=== PATIENT | male | born 1950 | race Caucasian/White ===

== ENCOUNTER 2022-11-07 13:24 | Emergency (ER) | payer MEDICARE, SELFPAY ==
[2022-11-07 13:35] VITALS: BP 96/80; PULSE 69; RESP 18; TEMP 36.6; O2SAT 98
--- NOTE | 2022-11-07 13:42 | ED.URI ---
HPI - URI/Sore Throat General Chief Complaint: Upper Respiratory Infection Stated Complaint: Congestion,Cough Time Seen by Provider: 11/07/22 13:43 Source: patient and family Mode of arrival: ambulatory Limitations: no limitations History of Present Illness HPI Narrative: 72-year-old male presents with with complaint of fatigue, sinus pressure/congestion, headaches, drainage for 4 days. thinks that patient had a fever this morning. States she did not check with a thermometer but that he felt warm. Patient denies cough, chest congestion, shortness of breath. Denies nausea vomiting diarrhea. Is taking DayQuil NyQuil with no relief of sinus pressure. Thinks that he has a sinus infection. would like patient's urine checked because last time he was this tired he had a urinary tract infection. Patient has no urinary symptoms. All systems reviewed and negative except as noted above. Related Data Allergies Allergy/AdvReac Type Severity Reaction Status Date / Time No Known Allergies Allergy Verified 11/07/22 13:43 Review of Systems Review of Systems: CONSTITUTIONAL: Denies fever, chills, or sweats. reports fatigue. EYES: Denies visual changes, redness, or discharge. ENT: Reports rhinorrhea, congestion, postnasal drainage, sinus pressure and pain. Denies sore throat, or otalgia. CARDIOVASCULAR: Denies chest pain, palpitations, or edema. RESPIRATORY: Denies cough or dyspnea. GASTROINTESTINAL: Denies abdominal pain, nausea, vomiting, or diarrhea. GENITOURINARY: Denies dysuria or hematuria. SKIN: Denies rash or itching. MUSCULOSKELETAL: Denies back pain, joint pain, or myalgia. NEUROLOGIC: Denies headache, numbness, or weakness. PSYCHIATRIC: Denies anxiety or depression. All other systems reviewed are negative, except as documented in HPI. PMFSH Comments At time of signature, agree with nursing past medical, surgical, social and family history. There is no relevant family history pertinent to the presenting complaint. Exam Narrative: GENERAL: This is a well-nourished, well-developed patient, in no apparent distress. HEAD: normocephalic, atraumatic. EYES: PERRL. Sclera clear/white. Vision is grossly intact. EARS: External ears normal, auditory canals clear and without drainage, Fluid bilateral TMs without erythema or perforation. NOSE: External nose normal with purulent nasal drainage with erythema and swelling to both nares. bilateral maxillary sinus tenderness. THROAT: Mucous membranes moist, erythema to posterior pharynx with clear postnasal drainage. NECK: Neck supple, non-tender without lymphadenopathy, masses or thyromegaly. CARDIOVASCULAR: Regular rate and rhythm without murmurs, gallops, or rubs. RESPIRATORY: Clear to auscultation. Breath sounds equal bilaterally. No wheezes, rales, or rhonchi. SKIN: warm, Dry, intact with no suspicious lesions or rash, good texture and turgor. NEURO: awake, alert, and oriented to person, place and time. There were no obvious focal neurologic abnormalities. EXTREMITIES: No joint tenderness, effusion, or edema noted. Course Course Level of Care: Express Care Visit Vital Signs Vital signs: reviewed MDM - URI/Sore Throat MDM Narrative Medical decision making narrative: Patient is aware of diagnosis, understands and agrees to treatment plan. Anticipatory guidance given. Patient agrees to follow-up as directed and is aware of reasons to seek care at the emergency department. Portions of this record may have been created with voice recognition software negative urinalysis. Negative influenza test. Will prescribe antibiotic today due to his history of frequent Bacterial sinus infections. Differential Diagnosis Differential diagnosis: Likely upper respiratory infection, sinusitis, viral infection and influenza Discharge Plan Discharge Clinical Impression: Acute sinusitis Patient Disposition: Home, Self-Care Condition: Stable Instructions:
--- NOTE | 2022-11-07 17:25 | PC.NURSE ---
1400 UPON DC, REPORTS THE LAST TIME PT WAS LETHARGIC LIKE THIS HE HAD A UTI, URINE TO BE OBTAINED AND TESTED.
== END 2022-11-07 14:20 | disposition home or self-care (01) ==
PROVIDERS: Emergency Provider Nurse Practitioner Family
DX: J01.90 Acute sinusitis, unspecified (principal); E78.00 Pure hypercholesterolemia, unspecified; I10 Essential (primary) hypertension; E11.9 Type 2 diabetes mellitus without complications
CPT/HCPCS: 81003; 87804; 99213; G0463

== ENCOUNTER 2025-05-20 15:30 | Outpatient (RCR) | payer MEDICARE, SELFPAY ==
--- NOTE | 2025-03-21 15:25 | OPREHPOC ---
Outpatient Therapy Plan of Care This is a Multidisciplinary Plan of Care that may contain components documented by all disciplines (PT, OT, and ST.) ST Problem 1 ST Problem #[address] Goal 1 Goal / Goal Update The patient will participate in home programming to improve carry over/generalization of skills to the home environment. Target Visit [address] Problem #[address] Goal 1 Goal / Goal Update Cognition: 1. The patient will recall short paragraph length information 2-3 details with 805 accuracy and minimal cues. 2. The patient will recall 2-3 items after a 5-7 minute delay with 80% accuracy and minimal cues. 3. The patient will attend t a structured task for 10 minutes without redirect. 4. The patient will complete abstract reasoning tasks for home scenarios with 805 accuracy and minimal cues. Target Visit 10
--- NOTE | 2025-03-21 15:26 | STOPEVAL1 ---
Assessment and note entered by Ariana Flores [employer]OUND[employer]ISHING SUPERVISOR Evaluation Information Assessment Status Evaluation Assessment Status Evaluation Reported Pain Level Pain Score 0: Self Report Pain Score 0: Self Report Assessment ST Clinical Summary The patient is a 75 year old male referred for speech therapy services following his discharge from the [facility]. 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 The patient is accompanied by his who he lives with they report their greatest concern is memory and concentration. The patient was administered the RIPA(Ross Information Processing Assessment) and portions of the [facility] Cognitive Evaluation. Results were as follows for the RIPA subtests given: Immediate Memory (29)96%, Temporal Orientation (21) 76%, Spatial Orientation (30) 100%, Problem Solving and Abstract Reasoning (29) 96%, Organization (23) 76%, Auditory Processing and Retention (30) 100%. Results for the [facility] Cognitive Evaluation subtests are as follows: Complex Problem Solving 100% Thought Organization 100%, Functional Math 100% Reading 100%. Results indicated Mild cognitive deficits characterized by mildly decreased memory( short-term and delayed), mildly decreased sustained attention/concentration, mild deficits for abstract reasoning. Recommend outpatient therapy services 1x week for 10 visits to address cognition. Discussed with patient and spouse they are agreeable with treatment at this time. Plan of Care ST Services Indicated Yes These treatments will address the objective and functional deficits as defined above. The patient will be advanced safely and appropriately in order for the patient to progress towards his/her prior level of function. Additional exercises will be introduced and as well as a comprehensive home exercise program upon discharge, if needed, ?to ensure carryover of functional gains achieved in the clinic. This treatment plan has been reviewed and agreement upon by the patient.
--- NOTE | 2025-03-21 15:51 | OTOPEVDC ---
Assessment and note entered by Haley Delgadillo, OT Thank you for referring Ramone Montenegro to [facility].? An evaluation has been completed. No further treatment is needed. Evaluation Information Assessment Status Evaluation Assessment Status Evaluation ICD-10 Condition Codes (OT) Generalized muscle weakness M62.81 Onset 02/18/25 Subjective Information Pt. and spouse present. Spouse recalling for pt. as pt. appears to have memory deficit. Spouse reports taking pt. to hospital as he was believing himself to be having a stroke due to experiencing BLE weakness, paresthesia, and loss of function. Pt. found to have aortic stenosis and subclavian steal syndrome., with no acute neurological findings, negative for stroke, possibility for TIA. Pt. discharged from hospital and went to inpatient rehabilitation for a week. Pt. reports having returning home from rehab he reports having no additional difficulties in his typical daily tasks, spouse reports he is stronger than prior to going to rehab. Spouse reports pt. also has history of diagnosis of apathy. Pt. reports he is happy and relaxed, since retiring from a constantly busy job at [employer]. Reported Pain Level Pain Score 0: Self Report Pain Score 0: Self Report Assessment OT Clinical Summary Pt. is 75 year old M referred to OP therapy discharge to inpatient rehabilitation from hospitalization for LE weakness, with paresthesia, and changes in mental status with history of diagnosed apathy. Pt. displays UE ROM WNL, and though displaying below average strength and dexterity, WFL, pt. reports this does not limit his independence in daily activities, although family is concerned with his limited interest and engagement in prior interests and overall sedentary lifestyle. Pt. encouraged and educated to find purposeful activities and engage with peers and family due to long-term benefits to health and overall wellbeing. Pt. will be seen by OP PT for evaluation as pt. has experienced multiple falls. Discharging from OT on this date Plan of Care OT Services Indicated No
--- NOTE | 2025-03-24 16:39 | OPREHPOC ---
Outpatient Therapy Plan of Care This is a Multidisciplinary Plan of Care that may contain components documented by all disciplines (PT, OT, and ST.) PT Problem 1 PT Problem #1 Knowledge Deficit PT Goal 1 Goal / Goal Update Pt. will demo good understanding of diagnosis and prognosis, HEPs. Target Visit 8 PT Problem 2 PT Problem #2 Impaired Functional Mobility PT Goal 1 Goal / Goal Update Pt will perform Single Leg Standing x 3-5 seconds each LE with improved stability Pt will perform 5xSTS < 20 seconds with improved stability and no discomfort Target Visit 16 PT Problem 3 PT Problem #3 Impaired Strength PT Goal 1 Goal / Goal Update Pt will demo 4/5 strength to B hip abductors, ERs, ankle PF and DF Target Visit 14 PT Problem 4 PT Problem #4 Impaired Gait PT Goal 1 Goal / Goal Update Pt will demo normalized gait pattern, with equal stride length and equal weight shifting bilaterally on various surfaces of smooth, uneven and stairs with appropriate AD prn Target Visit 12 PT Problem 5 PT Problem #5 Impaired Balance PT Goal 1 Goal / Goal Update Pt will demo a Tinetti Assessment score of 21/28 indicating improved balance and ambulation and reduced risk for falls. ST Problem 1 ST Problem #[address] Goal 1 Goal / Goal Update The patient will participate in home programming to improve carry over/generalization of skills to the home environment. Target Visit [address] Problem #[address] Goal 1 Goal / Goal Update Cognition: 1. The patient will recall short paragraph length information 2-3 details with 80% accuracy and minimal cues. 2. The patietn will recall 2-3 items after a 5-7 minute delay with 80% accuracy and minimal cues. 3. The patient will attend to a structured task for 10 minutes without redirect. 4. The patietn will complete abstract reasoning tasks for home scenarios with 80% accuracy and minimal cues. Target Visit 10
--- NOTE | 2025-03-24 16:39 | PTOPEVAL1 ---
Assessment and note entered by Federica Ma, PT Evaluation Information Assessment Status Evaluation ICD-10 Condition Codes (PT) Pain in low back M54.50,Pain in left hip M25.552, Pain in left knee M25.562,Difficulty Walking R26.2 ,Abnormalities of gait and mobility R26.9,Weakness R53.1 Onset approx 2 months ago Subjective Information Last January, reports feeling sudden weakness upon waking up in the morning, required help from to get up and move, collapsed on the toilet and felt dizzy, went to the hospital and had rehab. Upon DC, he was walking better without AD, has used a SC in the past on and off. Yesterday, noticed some weakness starting, today as he rolled out of bed, he felt increased shakiness and weakness to BLEs. [place] nerve pain on the back going down to the L buttock down to the L leg and L foot feels numb. Pt goal for therapy is to get stronger and feel stable on his feet. Reported Pain Level Pain Score 8: Self Report Assessment PT Clinical Summary Pt presents to therapy with c/o weakness and balance problems. Demos ROM impairments, impaired strength, postural instability, reduced proprioception and coordination which results to difficulty performing functional mobility and ambulation safely requiring constant SBA and use of SC. He will benefit from skilled PT to improve strength and stability and to reduce risk for falls. Plan of Care Interventions Gait Training,Hot Pack/Cold Pack,Manual Therapy, Neuro Re-education,Patient/Caregiver Education, Therapeutic Activities,Therapeutic Exercise PT Services Indicated Yes Treatment Frequency and 2x/wk x 12 visits Duration These treatments will address the objective and functional deficits as defined above. The patient will be advanced safely and appropriately in order for the patient to progress towards his/her prior level of function. Additional exercises will be introduced and as well as a comprehensive home exercise program upon discharge, if needed, ?to ensure carryover of functional gains achieved in the clinic. This treatment plan has been reviewed and agreement upon by the patient.
--- NOTE | 2025-04-20 09:49 | PCSTNOTE ---
Patient called & cancelled scheduled appointment this date due to admitted to hospital
--- NOTE | 2025-04-27 11:44 | STOPDC ---
Assessment and note entered by Ariana Flores [employer]ODUCTS INSPECTORS Evaluation Information Assessment Status Discharge Reported Pain Level Pain Score 0: Self Report Assessment ST Clinical Summary Initial Evaluation: The patient is a 75 year old male referred for speech therapy services following his discharge from the [facility]. 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 The patient is accompanied by his who he lives with they report their greatest concern is memory and concentration. The patient was administered the RIPA(Ross Information Processing Assessment) and portions of the [facility] Cognitive Evaluation. Results were as follows for the RIPA subtests given: Immediate Memory (29)96%, Temporal Orientation (21) 76%, Spatial Orientation (30) 100%, Problem Solving and Abstract Reasoning (29) 96%, Organization (23) 76%, Auditory Processing and Retention (30) 100%. Results for the [facility] Cognitive Evaluation subtests are as follows: complex Problem Solving 100% Thought Organization 100%, Functional Math 100% Reading 100%. Results indicated Mild cognitive deficits characterized by mildly decreased memory(short- term and delayed), mildly decreased sustained attention/concentration, mild deficits for abstract reasoning. Recommend outpatient therapy services 1x week for 10 visits to address cognition. Discussed with patient and spouse they are agreeable with treatment at this time. 04/27/25: Discharge: Upon discharge the patient is completing recall of immediate and delayed information 90% accuracy for at least 3 [place] details. Completing abstract reasoning with 100% accuracy. Attending to a structured task for 10 minutes without redirect. Thank you for the consult Plan of Care ST Services Indicated No
--- NOTE | 2025-05-20 16:57 | PTOPDC ---
Assessment and note entered by Federica Ma, PT Discharge Information Assessment Status Discharge ICD-10 Condition Codes (PT) Pain in low back M54.50,Pain in left hip M25.552, Pain in left knee M25.562,Difficulty Walking R26.2 ,Abnormalities of gait and mobility R26.9,Weakness R53.1 Onset approx 2 months ago Subjective Information Pt reports that therapy has helped him alot with gaining his confidence back and walking better. He currently ambulates in the house and in the community independently without assistive device. Reported Pain Level Pain Score 0: Self Report Assessment PT Clinical Summary Pt received 9 treatment sessions and demo good progress with his goals. Currently ambulating independently without assistive device and is wearing appropriate orthosis to improve alignment and posture. He also scored higher on LEFS with gains in strength, balance and functional mobility . Pt wants to be DC'd today, education provided for fall prevention techniques, safety and postural awareness, as well as importance of compliance to HEPs to maintain gains from therapy. Skilled PT discontinued at this time. Plan of Care PT Services Indicated No
== END 2025-05-23 08:33 | disposition home or self-care (01) ==
LOC: ANHPT 15:30
DX: I25.10 Atherosclerotic heart disease of native coronary artery without angina pectoris (principal); I69.810 Attention and concentration deficit following other cerebrovascular disease; I69.811 Memory deficit following other cerebrovascular disease; I65.22 Occlusion and stenosis of left carotid artery; I71.40 Abdominal aortic aneurysm, without rupture, unspecified; I73.9 Peripheral vascular disease, unspecified; J44.9 Chronic obstructive pulmonary disease, unspecified; R29.818 Other symptoms and signs involving the nervous system; R41.82 Altered mental status, unspecified; R45.3 Demoralization and apathy; R53.1 Weakness; Z87.891 Personal history of nicotine dependence; Z85.828 Personal history of other malignant neoplasm of skin
CPT/HCPCS: 92507; 92523; 97110; 97112; 97116; 97161; 97165; 97530; 97750